=== PATIENT | female | born 1965 | race American Indian/Alaskan Native ===

== ENCOUNTER 2018-07-13 02:23 | Emergency (ER) | payer SELFPAY ==
--- NOTE | 2018-07-13 03:45 | C.PDOC ---
History Of Present Illness 53 year old female presents to the ER with a complaint of cough, body aches, nasal congestion, and subjective fever for the past 4 days. Patient has been taking OTC medications with no relief and so she is requesting an evaluation. Denies SOB, chest pain, recent travel, or sick contact. Time Seen by Provider: 07/13/18 03:17 Chief Complaint (Nursing): Cough, Cold, Congestion History Per: Patient History/Exam Limitations: no limitations Onset/Duration Of Symptoms: Days (4) Current Symptoms Are (Timing): Still Present Location Of Pain: Diffuse Myalgias Associated Symptoms: Fever (Subjective), Cough, Myalgias, Nasal Congestion. denies: Other (SOB, Chest pain) Ear Symptoms: Bilateral: None Recent travel outside of the [place]: No Past Medical History Reviewed: Historical Data, Nursing Documentation, Vital Signs Vital Signs: Last Vital Signs Temp 98.8 F 07/13/18 03:02 Pulse 81 07/13/18 03:02 Resp 22 07/13/18 03:02 BP 159/113 H 07/13/18 03:02 Pulse Ox 96 07/13/18 03:02 - Medical History PMH: HTN Family History: States: Unknown Family Hx - Social History Hx Tobacco Use: No Hx Alcohol Use: Yes Hx Substance Use: No - Immunization History Hx Tetanus Toxoid Vaccination: No Hx Influenza Vaccination: No Hx Pneumococcal Vaccination: No Review Of Systems Constitutional: Positive for: Fever (Subjective) ENT: Positive for: Nose Congestion Cardiovascular: Negative for: Chest Pain Respiratory: Positive for: Cough. Negative for: Shortness of Breath Gastrointestinal: Negative for: Nausea, Vomiting Musculoskeletal: Positive for: Other (body aches) Physical Exam - Physical Exam Appears: Non-toxic Skin: Normal Color, Warm, Dry Head: Atraumatic, Normacephalic Eye(s): bilateral: Normal Inspection Ear(s): Bilateral: Normal Nose: Discharge (Clear), Other (Enlarged nasal turbinates) Oral Mucosa: Moist Throat: Normal, No Erythema, No Exudate Neck: Normal, Supple Chest: Symmetrical, No Tenderness Cardiovascular: Rhythm Regular Respiratory: Normal Breath Sounds, No Rales, No Rhonchi, No Wheezing Neurological/Psych: Oriented x3, Normal Speech ED Course And Treatment O2 Sat by Pulse Oximetry: 96 (Room air) Pulse Ox Interpretation: Normal Progress Note: Pt with elevated BP , states has not taken BP meds x 2 days. It was stressed to pt the importance of taking her meds, pt has all meds at home and agreed to take meds on arrival home. Reassessment Condition: Improved Disposition Counseled Patient/Family Regarding: Diagnosis, Need For Followup, Rx Given - Disposition Referrals: [facility] [Outside] Disposition: HOME/ ROUTINE Disposition Time: 03:36 Condition: STABLE Additional Instructions: Please follow up with PMD / clinic Take medications as prescribed Please take your blood pressure medications Increase PO fluids Return to ER if worse Prescriptions: Benzonatate [Tessalon Perles] 200 mg PO TID #14 sgl Cetirizine HCl [Zyrtec] 10 mg PO DAILY #14 capsule Mometasone Furoate [Nasonex] 2 spray NS DAILY #1 bottle Instructions: Viral Upper Respiratory Infection, Adult (DC), Upper Respiratory Infection (ED) Forms: [employer] (Greek), Work Excuse - Clinical Impression Clinical Impression: Upper respiratory infection - 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 - Scribe Statement The provider has reviewed the documentation as recorded by the Scribe Thomas Agee All medical record entries made by the Samiaibpraful were at my direction and personally dictated by me. I have reviewed the chart and agree that the record accurately reflects my personal performance of the history, physical exam, medical decision making, and the department course for this patient. I have also personally directed, reviewed, and agree with the discharge instructions and disposition.
[2018-07-13 04:53] VITALS: BP 142/92; PULSE 89; RESP 18; TEMP 98.4
[2018-07-13 06:32] VITALS: O2SAT 96
== END 2018-07-13 04:52 | disposition home or self-care (01) ==
LOC: C.ER 02:23
DX: J06.9 Acute upper respiratory infection, unspecified (principal); I10 Essential (primary) hypertension